=== PATIENT | male | born 1960 | race Caucasian/White ===

== ENCOUNTER → 2017-01-01 | Outpatient (CLI) | payer OTHER ==
[~2017-01-01] MED LIST: NAPR1TAB9 PO
== END | disposition home or self-care (01) ==
LOC: C.CPL 13:08
PROVIDERS: ATTEND Orthopaedic Surgery
DX: Z01.810 Encounter for preprocedural cardiovascular examination (principal)

== ENCOUNTER → 2018-03-06 | Outpatient (CLI) | payer OTHER ==
--- NOTE | 2018-03-06 13:10 | DIAGNOSTIC IMAGING REPORT ---
ULTRASOUND OF THE PERIANAL SOFT TISSUES CLINICAL HISTORY: Perianal cyst. COMPARISON STUDY: No priors. FINDINGS: Real-time, grayscale, and color flow sonography of the perianal soft tissues is performed at the indicated site of interest. There is a complex structure identified in the right perianal soft tissues of the site of interest. This measures 3.2 x 1.3 cm. Mild flow is seen in this region on color imaging. A small lymph node is suggested in the surrounding soft tissues and measures 6 mm short axis. IMPRESSION: There is a complex 3.2 cm structure/collection in the right-sided perianal soft tissues of the indicated site of interest. This is indeterminant and may resent a complex cyst or abscess. Clinical correlation will be essential and clinical follow-up to resolution is recommended. If this fails to resolve then a follow-up with a CT or MRI of the pelvis should be considered for further assessment. Electronically signed by: Duong Simon M.D. 03/06/2018 1:09 PM Dictated Date/Time: 03/06/2018 1:06 PM
== END | disposition home or self-care (01) ==
LOC: C.ULTRBC 12:08
PROVIDERS: ATTEND Surgery
DX: K62.89 Other specified diseases of anus and rectum (principal)

== ENCOUNTER → 2018-03-13 | Outpatient (CLI) | payer OTHER | END | disposition home or self-care (01) | LOC: C.LABSPEC 16:46 | PROVIDERS: ATTEND Surgery | DX: K61.0 Anal abscess (principal) ==

== ENCOUNTER 2021-11-23 16:07 | Inpatient (IN) ==
--- NOTE | 2021-11-23 16:20 | Emergency Department Note ---
History of Present Illness General Chief complaint: Cardiac Assessment Stated complaint: Cardiac Assessment History of Present Illness 60-year-old male presents to the ED with a chief complaint of chest discomfort. The patient states that his symptoms started a little after 2 PM. He states that he was sitting in his desk when his symptoms started. He describes a heaviness and tightness in his chest that radiated down both of his arms. He states like a bad indigestion. 8/10. He states his arms felt like they were tingling. He reports a little bit of diaphoresis. Denies shortness of breath, nausea or vomiting. The patient states that his symptoms resolved after EMS arrived and provided aspirin and IV fluids. The patient states that he has not had a stress test since about 2012. He does report some mild chest discomfort with ambulation over the past month. He has had some cold symptoms over a week ago. He has since recovered. 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 History of gout History of osteoarthritis lower leg and shoulder Left shoulder pain Perianal abscess Perianal cyst Surgical History History of incision and drainage skin abcess w/ packing march 13, 2018 perianal abcess in office [employer] S/P inguinal hernia repair 2012 S/P shoulder surgery reconstruction- 1998 S/P total knee arthroplasty 2011 Family History Father Alcoholism Cardiac disorder Diabetes Hypertension Myocardial infarction, Onset Age: 56 Seizure Mother Cardiac disorder Diabetes Hypertension Lung disease Myocardial infarction, Onset Age: 60 Denies family history of Colon cancer Ovarian cancer Prostate cancer Breast cancer Social History Smoking Status: Never smoker Hx Alcohol Use: No Hx Substance Use: No Preferred Language: Croatian Communication Ability: Effective Visual Impairment: No Limitations Hearing Ability: Normal Beliefs That Will Affect Care: None marital status: Current Living Situation: Spouse current occupational status: employed 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 Feels Safe at Home: Yes Childhood Exposure to Second-Hand Smoke: Yes Diet Comment: regular caffeine: Yes (coffee) during the past year weight has: remained stable Dental Care, Regularly: Yes Physical Activity Frequency: 5-6 Times per Week Seatbelt Use: always Sunscreen Use: Yes Review of Systems A total of 10 systems reviewed and were otherwise negative Physical Exam Vital Signs Vital Signs - 24 hr 11/23/21 16:20 Temperature 36.6 C Temperature Source Oral Pulse Rate 65 Respiratory Rate 16 Blood Pressure 163/96 H Blood Pressure Mean 118 Pulse Oximetry 97 Oxygen Delivery Method Room Air Sepsis Recent Fever Within 48 Hours No Sepsis New/Unexplained Change in Mental Status No Sepsis Action Taken by Nursing No Action Required CONSTITUTIONAL/VITAL SIGNS: Reviewed / noted above. GENERAL: Non-toxic in appearance. INTEGUMENTARY: Warm, dry, and [place]. HEAD: Normocephalic. EYES: without scleral icterus or trauma. ENT/OROPHARYNX: clear and moist. LYMPHADENOPATHY/NECK: Is supple without lymphadenopathy or meningismus. RESPIRATORY: Clear to auscultation bilaterally. No increased work of breathing. CARDIOVASCULAR: Regular rate and rhythm. GI/ABDOMEN: Soft and nontender. No organomegaly or pulsatile mass. EXTREMITIES: Warm and well perfused. BACK: No CVA tenderness. NEUROLOGICAL: Intact without focal deficits. PSYCHIATRIC: normal affect. MUSCULOSKELETAL: Normally developed with good muscle tone. TRIAGE NURSING DOCUMENTATION REVIEWED. Medical Decision Making Differential Diagnosis The differential that was considered includes acute myocardial infarction, acute coronary syndrome, myocarditis, pericarditis, pericardial effusions /tamponade, esophageal perforation, thoracic aortic dissection, pulmonary embolism, pneumonia, pneumothorax, pancreatitis, shingles, acute cholecystitis, perforated abdominal viscus. Medical Records Attestation: I reviewed the patient's medical records. Home Medications Current Medication List: was personally reviewed by me Laboratory Data Attestation: I reviewed the patient's lab results. Result diagrams: 11/23/21 16:15 11/23/21 16:15 Lab Results 02/02/22 02/02/22 02/02/22 Range/Units 16:15 16:15 16:15 WBC 8.12 (4.8-10.8) K/uL RBC 5.44 (4.7-6.1) M/uL Hgb 16.3 (14.0-18.0) g/dL Hct 47.6 (42-52) % MCV 87.5 (80-100) fL MCH 30.0 (25-34) pg MCHC 34.2 (32-36) g/dL RDW Std Deviation 39.8 (36.4-46.3) fL RDW Coeff of Judy 12.5 (11.5-14.5) % Plt Count 180 (130-400) K/uL MPV 9.7 (7.4-10.4) fL Immature Gran % (Auto) 0.4 % Neut % (Auto) 83.9 % Lymph % (Auto) 10.8 % Graham % (Auto) 3.8 % Eos % (Auto) 1.0 % Baso % (Auto) 0.1 % Neut # (Auto) 6.81 H (1.4-6.5) K/uL Lymph # (Auto) 0.88 L (1.2-3.4) K/uL Graham # (Auto) 0.31 (0.11-0.59) K/uL Eos # (Auto) 0.08 (0-0.5) K/uL Baso # (Auto) 0.01 (0-0.2) K/uL Immature Gran # (Auto) 0.03 H (0.00-0.02) K/uL PT 10.5 (9.0-12.0) Seconds INR 1.0 (0.9-1.1) APTT 25.1 (21.0-31.0) Seconds PTT Ratio 1.0 Sodium 137 (136-145) mmol/L Potassium 4.4 (3.5-5.1) mmol/L Chloride 104 (98-107) mmol/L Carbon Dioxide 26 (21-32) mmol/L Anion Gap 7 (3-11) BUN 14 (6-23) mg/dl Creatinine 1.13 (0.6-1.4) mg/dl Est Cr Clr Drug Dosing 83.7 ml/min Est GFR ( Amer) 80.3 ml/min Est GFR (Non-Af Amer) 69.3 ml/min BUN/Creatinine Ratio 12.4 (10-20) Glucose 108 H (70-99(Fasting)) mg/dl Calcium 9.4 (8.5-10.1) mg/dl Total Bilirubin 0.5 (0.2-1.0) mg/dl AST 22 (13-39) U/L ALT 24 (7-52) U/L Alkaline Phosphatase 46 (34-104) U/L Troponin I 0.41 H* (0-0.04) ng/ml Total Protein 6.9 (6.0-8.3) gm/dl Albumin 4.2 (3.4-5.0) gm/dl Globulin 2.7 (2.5-4.0) gm/dl Albumin/Globulin Ratio 1.6 (0.9-2) Lipase 25 (11-82) U/L Imaging Data Radiologist's Impression: Chest X-Ray 11/23/21 16:12 SINGLE VIEW CHEST CLINICAL HISTORY: Atypical chest pain FINDINGS: 2 AP, portable, upright chest radiographs are obtained. No prior studies are available for comparison at the time of dictation. The heart is mildly enlarged. The pulmonary vasculature is noncongested. There is fullness of the reece. There is mild bibasilar scarring/atelectasis. No airspace c onsolidation or large pleural effusion is identified. No pneumothorax is seen. The bony thorax is grossly intact. IMPRESSION: 1. Cardiomegaly with no acute cardiopulmonary abnormality. 2. Bilateral hilar fullness is nonspecific. This could represent enlarged pulmonary arteries or possibly hilar adenopathy. A nonemergent contrast-enhanced chest CT could be considered for further assessment. ACT 112: Negative or not required by law. Electronically signed by: Duong Simon M.D. 11/23/2021 4:51 PM ECG Data Attestation: I personally reviewed and interpreted this ECG as follows: Additional Comments: Twelve-lead EKG: Per my interpretation shows a sinus rhythm at a rate of 68. No ST elevation. PVC. Normal QTC. MDM Narrative 60-year-old male presents with chest pain at rest as detailed above. Associated diaphoresis and radiation down the arms. He is also had some recent exertional chest discomfort over the past month. His physical exam was unremarkable. Vital signs are stable. Twelve-lead EKG showed a sinus rhythm at a rate of 68 without acute ischemic changes. The patient was given 4 baby aspirin by EMS as well as some IV fluids. His symptoms resolved after that. He currently denies any specific complaints with regards to chest pain. Chest x-ray shows some cardiomegaly. Troponin is elevated at 0.41. Metabolic panel was unremarkable. CBC is unremarkable. The patient will be seen by the hospitalist for further inpatient evaluation and care. Impression & Plan Chest pain, precordial, Non-ST elevation (NSTEMI) myocardial infarction Discharge Plan Visit Data Chief Complaint: Cardiac Assessment Stated Complaint: Cardiac Assessment ED Provider: aNun Gilliam Discharge Problem: Chest pain, precordial, Non-ST elevation (NSTEMI) myocardial infarction Patient Disposition: Being Evaluated by Hospitalist Forms Stand Alone Forms: [facility] Prescriptions Prescriptions: No Action tamsulosin [Flomax] 0.4 mg capsule 0.4 mg PO QPM RF: 0 ramipril 5 mg capsule 5 mg PO QAM RF: 0 Referrals Referrals: Jesus Coelho MD [Primary Care Provider] -
[2021-11-23 16:26] LABS: Basophils # (auto) 0.01 K/uL (0-0.2); Basophils % (auto) 0.1 %; Eosinophils # (auto) 0.08 K/uL (0-0.5); Hematocrit (blood only) 47.6 % (42-52); Hemoglobin 16.3 g/dL (14.0-18.0); Immature Granulocytes # (auto) 0.03 K/uL (0.00-0.02); Immature Granulocytes % (auto) 0.4 %; Lymphocytes # (auto) 0.88 K/uL (1.2-3.4); Lymphocytes % (auto) 10.8 %; Mean Corpuscular Hgb Conc 34.2 g/dL (32-36); Mean Corpuscular Volume 87.5 fL (80-100); Mean Platelet Volume 9.7 fL (7.4-10.4); Monocytes # (auto) 0.31 K/uL (0.11-0.59); Monocytes % (auto) 3.8 %; Neutrophils # (auto) 6.81 K/uL (1.4-6.5); Neutrophils % (auto) 83.9 %; Platelet Count 180 K/uL (130-400); RDW Coefficient of Variation 12.5 % (11.5-14.5); RDW Standard Deviation 39.8 fL (36.4-46.3); Red Blood Count 5.44 M/uL (4.7-6.1); White Blood Count 8.12 K/uL (4.8-10.8)
[2021-11-23 16:38] LABS: Partial Thromboplastin Time 25.1 Seconds (21.0-31.0); Prothrombin Time 10.5 Seconds (9.0-12.0)
--- NOTE | 2021-11-23 16:52 | XRay Report ---
SINGLE VIEW CHEST CLINICAL HISTORY: Atypical chest pain FINDINGS: 2 AP, portable, upright chest radiographs are obtained. No prior studies are available for comparison at the time of dictation. The heart is mildly enlarged. The pulmonary vasculature is nonc ongested. There is fullness of the reece. There is mild bibasilar scarring/atelectasis. No airspace co nsolidation or large pleural effusion is identified. No pneumothorax is seen. The bony thorax is davide sly intact. IMPRESSION: 1. Cardiomegaly with no acute cardiopulmonary abnormality. 2. Bilateral hilar fullness is nonspecific. This could represent enlarged pulmonary arteries or possi susie hilar adenopathy. A nonemergent contrast-enhanced chest CT could be considered for further assess ment. ACT 112: Negative or not required by law. Electronically signed by: Duong Simon M.D. 11/23/2021 4:51 PM
[2021-11-23 16:58] LABS: Albumin Globulin Ratio 1.6 (0.9-2); Albumin Level 4.2 gm/dl (3.4-5.0); BUN Creatinine Ratio 12.4 (10-20); Bilirubin,Total 0.5 mg/dl (0.2-1.0); Calcium 9.4 mg/dl (8.5-10.1); Creatinine Clr Calc Pharmacy 83.7 ml/min; Est GFR (African American) 80.3 ml/min; Est GFR (Non-African American) 69.3 ml/min; Globulin 2.7 gm/dl (2.5-4.0); Potassium 4.4 mmol/L (3.5-5.1); Total Protein 6.9 gm/dl (6.0-8.3)
[2021-11-23 17:07] LABS: Troponin I 0.41 ng/ml (0-0.04)
--- NOTE | 2021-11-23 17:45 | History & Physical Report ---
Date of Service November 23, 2021 Assessment & Plan (1) Non-ST elevation (NSTEMI) myocardial infarction: Plan: 60 yo M with a PMHx HTN and BPH admitted for NSTEMI. NSTEMI, HTN: Presented with 2 hours of midsternal chest pain improved following baby asa x4. Initial troponin 0.41 without baseline to compare. EKG without notable ST or T wave changes. Hypertensive 160s/90s in ER; did not miss home medication today. Chest pain free on my interview; nitro SL prn ordered. No indication for emergent catheterization. Echo, A1c, lipid panel ordered for AM. Trend troponins q6h. Heparin gtt initiated. Will start daily asa 81mg, Plavix 75mg. Added metoprolol tartrate 25mg BID. Continue home ramipril 5mg daily. Cardiology consulted and appreciate recommendations. Code Status: FULL CODE FEN: Heart healthy diet, NPO at midnight DVT ppx: Heparin gtt Dispo: Med/Surg with Telemetry (2) HTN (hypertension): History of Present Illness Chief Complaint: Chest pain Primary Care Provider: Jesus Coelho MD 60 yo M with a PMHx HTN and BPH who presented to the ER after an episode of chest pain at rest at home. Pain resolved after receiving IV fluids and 4 baby aspirin by EMS. Admission troponin of 0.41; EKG without ST changes. Lab work otherwise benign. Chest x-ray noted cardiomegaly without acute cardiopulmonary abnormality. 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 Recommendation for nonemergent contrast-enhanced chest CT. Patient reports around 1 month of exertional dyspnea (while walking up a hill near his worship) but has never had pain or dyspnea at rest in the past. His last stress test was in 2012 which did not show any abnormalities at that time. 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 History of gout History of osteoarthritis lower leg and shoulder Left shoulder pain Perianal abscess Perianal cyst Surgical History History of incision and drainage skin abcess w/ packing march 13, 2018 perianal abcess in office [employer] S/P inguinal hernia repair 2012 S/P shoulder surgery reconstruction- 1998 S/P total knee arthroplasty 2011 Family History Father Alcoholism Cardiac disorder Diabetes Hypertension Myocardial infarction, Onset Age: 56 Seizure Mother Cardiac disorder Diabetes Hypertension Lung disease Myocardial infarction, Onset Age: 60 Denies family history of Colon cancer Ovarian cancer Prostate cancer Breast cancer Social History Smoking Status: Never smoker Hx Alcohol Use: No Hx Substance Use: No Preferred Language: Maltese Communication Ability: Effective Visual Impairment: No Limitations Hearing Ability: Normal Beliefs That Will Affect Care: None marital status: Current Living Situation: Spouse current occupational status: employed 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 Feels Safe at Home: Yes Childhood Exposure to Second-Hand Smoke: Yes Diet Comment: regular caffeine: Yes (coffee) during the past year weight has: remained stable Dental Care, Regularly: Yes Physical Activity Frequency: 5-6 Times per Week Seatbelt Use: always Sunscreen Use: Yes Review of Systems Review of Systems: All systems reviewed & are unremarkable except as noted in HPI & below Constitutional: no fever, no chills and no malaise Respiratory: no cough and no dyspnea Cardiovascular: + chest pain; no palpitations and no edema Gastrointestinal: no abdominal pain, no constipation and no diarrhea/loose stools Physical Exam Constitutional: WD/WN, vitals as above Eyes: PERRL, conjunctivae normal, anicteric sclerae ENMT: external ear and nose normal, oropharynx normal Neck: normal visual inspection Respiratory: normal respiratory effort, lungs clear to auscultation Cardiovascular: RRR, no murmur, no edema Gastrointestinal (Abdomen): normal bowel sounds, soft, nontender, no hepatosplenomegaly Musculoskeletal: no cyanosis or clubbing, extremities motor strength 5/5 Skin: no rashes, warm and dry Neurologic: AAOx3, normal speech. Bilateral UE, LE, and face without sensory or motor deficits. No tremor. Psychiatric: A+Ox3, euthymic affect Results & Data Results & Data ([facility]) Vital Signs (Past 12 Hours) Vital Signs Temp Pulse Resp BP Pulse Ox 11/23/21 16:20 36.6 C 65 16 163/96 H 97 Supervising Physician Co-Signing Physician Notes Patient seen and examined in room. Patient initially presented with chest pain, currently pain-free. Mild elevated troponin. Started on heparin drip. Exam reveals heart with no murmurs. Lungs are clear to auscultation. Rest of exam is as noted above. Cardiology consultation, continue to track troponins. Consider cardiac catheterization based on work-up. Resident Activity Tracking Resident Involvement: Resident Care Provided Care Provided: Adult Hospital Medicine
[2021-11-23] MEDS ORDERED: NITROGLYCERIN SL 0.4 MG/TAB TAB SL PRN (18:13)
[2021-11-23] MEDS ORDERED: MoRPHine SULFATE 2 MG/ML CARP IV PRN (18:13)
[2021-11-23] MEDS ORDERED: Heparin IV Adult Wt-Based Standard WITH Bolus Protocol STA (18:13)
[2021-11-23] MEDS ORDERED: HEPARIN SOD (PORCINE) 1000 UNIT/ML IV ONE (18:24)
[2021-11-23] MEDS: HEPARIN SODIUM/DEXTROSE 25,000 UNITS/500 ML BAG IV SCH (18:34)
[2021-11-23] MEDS ORDERED: POLYETHYLENE (MIRALAX) 17 GM PACK PO PRN (21:13)
[2021-11-23] MEDS ORDERED: ACETAMINOPHEN 325 MG TAB PO PRN (21:13)
[2021-11-23] MEDS: METOPROLOL TARTRATE 25 MG TAB PO SCH (22:21)
[2021-11-23] MEDS ORDERED: hydrALAZINE HCL 20 MG/ML VIAL IV PRN (22:23)
[2021-11-24 01:00] LABS: Partial Thromboplastin Ratio 3.8
[2021-11-24 01:07] LABS: Partial Thromboplastin Time 99.1 Seconds (21.0-31.0)
[2021-11-24 05:33] LABS: Troponin I 12.87 ng/ml (0-0.04)
[2021-11-24 07:02] LABS: Estimated Average Glucose 111 mg/dl; Hemoglobin A1C 5.5 % (4.5-5.6)
[2021-11-24 09:18] LABS: Partial Thromboplastin Ratio 2.8
[2021-11-24] MEDS: METOPROLOL TARTRATE 25 MG TAB PO SCH ×2 (09:31→20:36)
[2021-11-24] MEDS: ASPIRIN 81 MG ECTAB PO SCH (09:34)
[2021-11-24] MEDS: ENALAPRIL MALEATE 10 MG TAB PO SCH (09:35)
[2021-11-24] MEDS: ATORVASTATIN 40 MG TAB PO SCH (09:35)
[2021-11-24] MEDS: CLOPIDOGREL BISULFATE 75 MG TAB PO SCH (09:35)
[2021-11-24 09:52] LABS: Partial Thromboplastin Time 73.8 Seconds (21.0-31.0)
--- NOTE | 2021-11-24 11:02 | Cardiology Consultation ---
Date of Consultation November 24, 2021 Assessment & Plan (1) Non-ST elevation (NSTEMI) myocardial infarction: (2) HTN (hypertension): (3) Ischemic cardiomyopathy: ASSESSMENT/PLAN: 1. NSTEMI: No further angina. Continue aspirin, Plavix, heparin drip. Continue beta-girma. Continue high intensity statin therapy and AYLEEN inhibitor. Recommend cardiac catheterization. Risks and benefits of the procedure were discussed with him in detail. He was made aware that CT surgery is not available at this facility. He was agreeable to proceed when Boiler [facility] is available. Currently no urgent indication as he is chest pain-free. For any symptoms, he was asked to notify nursing staff immediately. 2. Ischemic cardiomyopathy: Reduced LV systolic function noted on preliminary review of echo0 On preliminary review LV systolic function does not appear to be severely reduced. Would recommend metoprolol succinate and AYLEEN inhibitor on discharge. If EF is less than 35%, would consider LifeVest if no improvement. Formal echo review pending. He appears euvolemic. 3. Hypertension: Blood pressure has been normotensive to mildly hypertensive. Blood pressure this morning while we were in the room was improved compared to most recent charted vitals. Beta-girma and AYLEEN inhibitor. 4. Disposition cardiology will continue to follow. Cardiac catheterization pending. Patient care communicated with Dr. Devi of the primary hospitalist service. Highly complex medical issues. Thank you for allowing me to participate in the care of your patient. Please call for any other questions or concerns. Sincerely, Dunae Carlos M.D. History of Present Illness Reason for Consultation: NSTEMI Requesting Physician: Helen Mendoza Attending Physician: Kevin Devi DO History of Present Illness Mr. Eubanks is a pleasant 60-year-old gentleman with history significant for hypertension who was admitted on 11/23/2021 for chest discomfort. He has no known cardiac history. At approximately 2:00 p.m. on 11/23/2021, while sitting at his desk, he developed 8/10 substernal chest discomfort described as a tightness and burning sensation that radiated to bilateral arms. There was associated diaphoresis but no shortness of breath. He has a history of acid reflux and took Tums with no relief. The chest discomfort was different than usual acid reflux. He called for EMS and was given aspirin 324 mg. Shortly thereafter symptoms resolved. There was reported ST elevation on ECG by EMS however it is not available for review at the time of this note. This apparently resolved after chest discomfort resolved. In the emergency department, initial troponin was 0.41 and peaked at 17.31 before trending downward. He has remained chest discomfort free since being in the emergency department. He was admitted by the hospitalist service. He denies shortness of breath at rest, syncope, near-syncope, palpitations, edema, or bleeding such as melena, hematochezia, or hematuria. He has chronic dyspnea with exertion while walking up hills, with no recent change. In the emergency department, he was placed on heparin, aspirin, Plavix, and low- dose beta-girma. He takes AYLEEN-inhibitor at home. He also was initiated on statin therapy. Review of systems: As above. Review of systems otherwise negative/unremarkable. Family history: Father had RI and CABG at the age of 55 and in his 80s. Mother had CAD diagnosed in her 60s. Social history: Denies tobacco, alcohol, or drug abuse. He lives at home with his in [place]. They have 4 children (daughter in [place], son in [facility], son in [place], son in [place]). 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 He was unaccompanied in his ER room. 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 History of gout History of osteoarthritis lower leg and shoulder Left shoulder pain Perianal abscess Perianal cyst Surgical History History of incision and drainage skin abcess w/ packing march 13, 2018 perianal abcess in office [facility] S/P inguinal hernia repair 2012 S/P shoulder surgery reconstruction- 1998 S/P total knee arthroplasty 2012 Family History Father Alcoholism Cardiac disorder Diabetes Hypertension Myocardial infarction, Onset Age: 56 Seizure Mother Cardiac disorder Diabetes Hypertension Lung disease Myocardial infarction, Onset Age: 60 Denies family history of Colon cancer Ovarian cancer Prostate cancer Breast cancer Social History Smoking Status: Never smoker Second Hand Exposure: No; Do You Dip or Chew Tobacco: No; Hx Alcohol Use: No Hx Substance Use: No Preferred Language: Cameroonian Communication Ability: Effective Visual Impairment: No Limitations Hearing Ability: Normal Supervisor Coin Machine Required: No Beliefs That Will Affect Care: None marital status: Current Living Situation: Spouse current occupational status: employed 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 Alert and oriented. HEENT: Anicteric sclera. Neck: No JVD. No bruits. Normal carotid upstrokes bilaterally. Cardiac: PMI was nondisplaced. No ventricular heave. Regular rate and rhythm. Normal S1-S2. No murmurs, rubs, or gallops. Pulmonary: Clear to auscultation bilaterally without wheezes, rales, or rhonchi. Abdomen: Soft, nontender, nondistended, with normoactive bowel sounds. No bruits noted. Extremities: 2+ radial pulses bilaterally. 2+ posterior tibialis pulses bilaterally. No edema or cyanosis. Psychiatric: Affect appears appropriate. Results & Data ([facility]) Vital Signs (Past 12 Hours) Pulse 58 bpm; BP 139/98 mmHg; RR 18; O2 Sat 97% on Room Air Laboratory Results Laboratory Results - last 24 hr 11/23/21 11/23/21 11/23/21 16:15 16:15 16:15 WBC 8.12 RBC 5.44 Hgb 16.3 Hct 47.6 MCV 87.5 MCH 30.0 MCHC 34.2 RDW Std Deviation 39.8 RDW Coeff of Judy 12.5 Plt Count 180 MPV 9.7 Immature Gran % (Auto) 0.4 Neut % (Auto) 83.9 Lymph % (Auto) 10.8 Linn % (Auto) 3.8 Eos % (Auto) 1.0 Baso % (Auto) 0.1 Neut # (Auto) 6.81 H Lymph # (Auto) 0.88 L Linn # (Auto) 0.31 Eos # (Auto) 0.08 Baso # (Auto) 0.01 Immature Gran # (Auto) 0.03 H PT 10.5 INR 1.0 APTT 25.1 PTT Ratio 1.0 Sodium 137 Potassium 4.4 Chloride 104 Carbon Dioxide 26 Anion Gap 7 BUN 14 Creatinine 1.13 Est Cr Clr Drug Dosing 83.7 Est GFR ( Amer) 80.3 Est GFR (Non-Af Amer) 69.3 BUN/Creatinine Ratio 12.4 Glucose 108 H Estimat Average Glucose Hemoglobin A1c Calcium 9.4 Total Bilirubin 0.5 AST 22 ALT 24 Alkaline Phosphatase 46 Troponin I 0.41 H* Total Protein 6.9 Albumin 4.2 Globulin 2.7 Albumin/Globulin Ratio 1.6 Triglycerides Cholesterol LDL Cholesterol, Calc VLDL Cholesterol, Calc HDL Cholesterol Cholesterol/HDL Ratio Lipase 25 SARS-CoV-2, RNA, NAAT 11/23/21 11/23/21 11/24/21 17:48 22:04 00:27 WBC RBC Hgb Hct MCV MCH MCHC RDW Std Deviation RDW Coeff of Judy Plt Count MPV Immature Gran % (Auto) Neut % (Auto) Lymph % (Auto) Linn % (Auto) Eos % (Auto) Baso % (Auto) Neut # (Auto) Lymph # (Auto) Linn # (Auto) Eos # (Auto) Baso # (Auto) Immature Gran # (Auto) PT INR APTT 99.1 H* PTT Ratio 3.8 Sodium Potassium Chloride Carbon Dioxide Anion Gap BUN Creatinine Est Cr Clr Drug Dosing Est GFR ( Amer) Est GFR (Non-Af Amer) BUN/Creatinine Ratio Glucose Estimat Average Glucose Hemoglobin A1c Calcium Total Bilirubin AST ALT Alkaline Phosphatase Troponin I 17.31 H* Total Protein Albumin Globulin Albumin/Globulin Ratio Triglycerides Cholesterol LDL Cholesterol, Calc VLDL Cholesterol, Calc HDL Cholesterol Cholesterol/HDL Ratio Lipase SARS-CoV-2, RNA, NAAT NEGATIVE 11/24/21 11/24/21 11/24/21 04:21 04:21 08:25 WBC RBC Hgb Hct MCV MCH MCHC RDW Std Deviation RDW Coeff of Judy Plt Count MPV Immature Gran % (Auto) Neut % (Auto) Lymph % (Auto) Linn % (Auto) Eos % (Auto) Baso % (Auto) Neut # (Auto) Lymph # (Auto) Linn # (Auto) Eos # (Auto) Baso # (Auto) Immature Gran # (Auto) PT INR APTT 73.8 H* PTT Ratio 2.8 Sodium Potassium Chloride Carbon Dioxide Anion Gap BUN Creatinine Est Cr Clr Drug Dosing Est GFR ( Amer) Est GFR (Non-Af Amer) BUN/Creatinine Ratio Glucose Estimat Average Glucose 111 Hemoglobin A1c 5.5 Calcium Total Bilirubin AST ALT Alkaline Phosphatase Troponin I 12.87 H* Total Protein Albumin Globulin Albumin/Globulin Ratio Triglycerides 81 Cholesterol 185 LDL Cholesterol, Calc 123 VLDL Cholesterol, Calc 16 HDL Cholesterol 46 Cholesterol/HDL Ratio 4.0 Lipase SARS-CoV-2, RNA, NAAT 11/24/21 10:03 WBC RBC Hgb Hct MCV MCH MCHC RDW Std Deviation RDW Coeff of Judy Plt Count MPV Immature Gran % (Auto) Neut % (Auto) Lymph % (Auto) Linn % (Auto) Eos % (Auto) Baso % (Auto) Neut # (Auto) Lymph # (Auto) Linn # (Auto) Eos # (Auto) Baso # (Auto) Immature Gran # (Auto) PT INR APTT PTT Ratio Sodium Potassium Chloride Carbon Dioxide Anion Gap BUN Creatinine Est Cr Clr Drug Dosing Est GFR ( Amer) Est GFR (Non-Af Amer) BUN/Creatinine Ratio Glucose Estimat Average Glucose Hemoglobin A1c Calcium Total Bilirubin AST ALT Alkaline Phosphatase Troponin I 9.09 H* Total Protein Albumin Globulin Albumin/Globulin Ratio Triglycerides Cholesterol LDL Cholesterol, Calc VLDL Cholesterol, Calc HDL Cholesterol Cholesterol/HDL Ratio Lipase SARS-CoV-2, RNA, NAAT Diagnostic Findings ECGs personally reviewed: ECG 11/23/2021 at 4:16 p.m.: Sinus rhythm with PVCs at 68 beats per minute. ECG 11/24/2021 at 8:33 a.m.: Sinus bradycardia 55 beats per minute. Lateral T-wave abnormality. Anterior T-wave abnormality. Poor R-wave progression, possible anterior infarct. Chest x-ray 11/23/2021: No acute cardiopulmonary abnormality per Radiology. Medications Administered Current Inpatient Medications Acetaminophen (Acetaminophen 325 Mg Tab) 650 mg PO Q4H PRN PRN Reason: Pain or Fever Stop: 12/23/21 21:12 Aspirin (Aspirin 81 Mg Ectab) 81 mg PO [facility] Stop: 12/24/21 08:59 Last Admin: 11/24/21 09:34 Dose: 81 mg Documented by: Atorvastatin Calcium (Atorvastatin 40 Mg Tab) 80 mg PO [facility] Stop: 12/24/21 08:59 Last Admin: 11/24/21 09:35 Dose: 80 mg Documented by: Clopidogrel Bisulfate (Clopidogrel Bisulfate 75 Mg Tab) 75 mg PO [facility] Stop: 12/24/21 08:59 Last Admin: 11/24/21 09:35 Dose: 75 mg Documented by: Enalapril Maleate (Enalapril Maleate 10 Mg Tab) 20 mg PO [facility] Stop: 12/24/21 08:59 Last Admin: 11/24/21 09:35 Dose: 20 mg Documented by: Hydralazine HCl (Hydralazine Hcl 20 Mg/Ml Vial) 10 mg IV Q6H PRN PRN Reason: systolic >180, diastolic >100 Stop: 12/23/21 22:29 Heparin Sodium/Dextrose (Heparin Sodium/Dextrose) 25,000 units in 500 mls @ 28 mls/hr IV .[id number] [facility]; Protocol Stop: 12/23/21 18:29 Last Titration: 11/24/21 09:56 Dose: 1,300 units/hr, 26 mls/hr Documented by: Metoprolol Tartrate (Metoprolol Tartrate 25 Mg Tab) 25 mg PO BID [facility] Stop: 12/23/21 21:12 Last Admin: 11/24/21 09:31 Dose: Not Given Documented by: Morphine Sulfate (Morphine Sulfate 2 Mg/Ml Carp) 2 mg IV Q30M PRN PRN Reason: Chest Pain Stop: 12/07/21 18:12 Nitroglycerin (Nitroglycerin Sl 0.4 Mg/Tab Tab) 0.4 mg SL UD PRN PRN Reason: Chest Pain Stop: 12/23/21 18:12 Polyethylene Glycol (Polyethylene (Miralax) 17 Gm Pack) 17 gm PO DAILY PRN PRN Reason: Constipation Stop: 12/23/21 21:12 Tamsulosin HCl (Tamsulosin Hcl 0.4 Mg Cap) 0.4 mg PO QPM [facility] Stop: 12/24/21 20:59 PG Care Time/CCT Total # of Minutes Spent Total Time Spent with Patient: Total time spent is greater than 50% in coordination of care (as documented) at patient's floor/unit and/or counseling patient: Coding Level of Care Code 50073 Inpt Consult Level 5 Diagnoses Non-ST elevation (NSTEMI) myocardial infarction I21.4 HTN (hypertension) I10 Ischemic cardiomyopathy I25.5
--- NOTE | 2021-11-24 13:34 | Cardiac Catheterization ---
[facility] Data: Process Mold Technician Cardiac Status Clinical evaluation leading to the procedure CAD Presenation: Unstable angina Anginal Classification: CCS III Heart Failure: No Cardiogenic Shock within 24 Hours: No Cardiac Arrest within 24 Hours: No Imaging Studies Past 6 Months: Yes Stress Studies Past 6 Months: No Coronary Anatomy Dominant: Right Diagnostic Physicians Name: Maximo Carlos MD Status: Elective Closure Device Percutaneous Entry Location: Radial Closure Device: Radial Band Recommendations: PCI without planned CABG Cardiac Cath Procedure Full Procedure Date November 24, 2021 Pre-Procedure Diagnosis Pre-Procedure Diagnosis: Angina AUC Score AUC Score: 7 Post-Procedure Diagnosis Post-Procedure Diagnosis: Severe CAD and Elevated Intracardiac Pressures Procedure(s) Performed Procedure(s) Performed: Coronary Angiography and Left Heart Cath Vasc Tech Maximo Carlos MD Chemist Inorganic(s) [place]ler Estimated Blood Loss Estimated Blood Loss: < 25 ml Medication(s) Medication(s): Fentanyl, Heparin, Lidocaine 1%, Nicardipine and Versed Summary of Findings Procedures: 1. Coronary angiography 2. Left heart catheterization 3. Moderate sedation Indication: 60-year-old gentleman with a history significant for hypertension and dyslipidemia who presents with a few week history of crescendo angina. Referred for cardiac catheterization by Dr. Madsen. Coronary angiography: 1. Left main: No significant CAD. 2. Left anterior descending: LAD extends to the apex. Mid LAD 30% at bifurcation of D1. No other significant CAD noted. 3. Circumflex: Proximal circumflex 20 to 30%. Mid circumflex 40%. Large OM2 with long stenosis 70-80%. GURU-3 flow. 4. Right coronary artery: RCA is large and dominant. Early mid RCA CAD of 30 to 50%. Mid RCA 70-80%. PDA and PL without significant CAD. GURU-3 flow Left heart catheterization: 1. Left ventriculography was not performed. 2. Mildly elevated LVEDP; 15 mmHg. 3. No aortic stenosis. Peak to peak gradient across the aortic valve is 0. Moderate sedation: 1. Sedation start time: 12:58 PM 2. Sedation end time: 1:20 PM Impression: 1. Severe CAD involving large OM2 and RCA. 2. Otherwise, mild to moderate nonobstructive CAD. 3. Mildly elevated left-sided filling pressure. 4. No aortic stenosis. Plan: 1. Dr. Green of interventional cardiology was asked to review imaging and consider PCI. 2. Risk factor modification. Hemodynamics Rest Ao:: 136/65 Final Ao: 145/69 LV: 130/7/15 Recommendations Recommendations: PCI without planned CABG Specimens Specimens: None Radiation Exposure (mGy) 1052 mGy. Fluoro time 2.4 min. Contrast (mls) 45 ml Procedural Complication(s) None Disposition remains in mobile lab technician for PCI attempt I attest to the content of the Intraoperative Record and any orders documented therein. Any exceptions are noted below. [employer] Card Cath Procedure Codes Cardiac Catheterization Procedure 1: Cardiovascular Cath Procedures: 00009 Coronaries and LHC (+/-LV) Moderate Sedation Procedure 1: Sedation/Anesthesia: 63062 Mod Sedation by the same physician;Init15 Min Child Age 5 & Up Procedure 2: Sedation/Anesthesia: 59114 Mod Sedation by the same physician; Ea [id number] Minutes PG Care Time/CCT Total # of Minutes Spent Total Time Spent with Patient: Total time spent is greater than 50% in coordination of care (as documented) at patient's floor/unit and/or counseling patient:
--- NOTE | 2021-11-24 14:11 | XCELERA ---
[id number]
[2021-11-24] MEDS ORDERED: niCARdipine HCL INJ 2.5 MG/ML 10 ML AMP ONE (15:05)
[2021-11-24] MEDS ORDERED: HEPARIN (PORCINE) 1000 UNIT/ML 10 ML (CATH LAB USE ONLY) ONE (15:05)
[2021-11-24] MEDS ORDERED: NITROGLYCERIN/D5W 100MCG/ML 20ML SYR ONE (15:06)
[2021-11-24] MEDS ORDERED: fentaNYL citrate 100 MCG/2 ML VIAL ONE (15:06)
[2021-11-24] MEDS ORDERED: MIDAZOLAM HCL 1 MG/ML 2ML VIAL ONE ×2 (15:06→15:37)
--- NOTE | 2021-11-24 15:17 | Pre Anesthesia Assessment ---
Date of Service November 24, 2021 Pre Sedation Assessment Vital Signs Temp Pulse Pulse Resp BP BP Pulse Ox 11/24/21 13:00 36.9 C 62 16 128/76 97 11/23/21 22:27 58 L 18 139/98 97 11/23/21 22:00 63 16 149/102 H 97 11/23/21 21:14 56 L 18 141/94 H 96 11/23/21 21:13 59 L 18 96 11/23/21 19:00 61 18 140/97 96 11/23/21 18:00 64 18 137/91 97 11/23/21 17:57 146/101 H 11/23/21 17:30 67 14 150/96 H 97 11/23/21 17:00 64 19 141/96 H 96 11/23/21 16:30 76 20 96 11/23/21 16:20 36.6 C 65 16 163/96 H 97 11/23/21 16:16 69 18 97 Pulse Ox 11/24/21 13:00 11/23/21 22:27 11/23/21 22:00 11/23/21 21:14 11/23/21 21:13 96 11/23/21 19:00 11/23/21 18:00 11/23/21 17:57 11/23/21 17:30 11/23/21 17:00 11/23/21 16:30 11/23/21 16:20 11/23/21 16:16 Cardiovascular RRR, no murmur, no edema Respiratory normal respiratory effort, lungs clear to auscultation Pre-Sedation Airway Assessment Smoking Status: Never smoker Short, Thick Neck: No Thyromental Distance: > or= 3.5 Finger Breadths Oral Cavity: + WNL Mallampati Class: II ASA: ASA3 NPO Status Date of Last Intake of Fluids: 11/23/21 Time of Last Intake of Fluids: 20:00 Date of Last Intake of Solid Food: 11/23/21 Time of Last Intake of Solid Foods: 20:00 Procedure Planning Contraindications for Sedation: none Current Medications Reviewed: Yes Notes The planned sedation has been discussed with the patient. Informed Consent was obtained. I have identified the patient, determined the appropriateness of sedation and have assessed the patient immediately prior to the procedure. All medicine(s) and interventions are by my order.
--- NOTE | 2021-11-24 15:51 | Hospitalist Progress Note ---
Date of Service November 24, 2021 Assessment & Plan (1) Non-ST elevation (NSTEMI) myocardial infarction: Plan: 60 yo M with a PMHx HTN and BPH admitted for NSTEMI. NSTEMI, HTN: - Presented with 2 hours of midsternal chest pain improved following baby asa x4. - Initial troponin 0.41 and with trending went to 17.31, 12.87, and 9.09 [address] without notable ST or T wave changes. - Hypertensive 160s/90s in ER but much improved - Lipid panel unremarkable; A1c 5.5 - S/P cardiac catheterization and PCI on 11/24 - Will maintain heparin gtt likely x 48 hours - Continue ASA and Plavix; Continue Metoprolol 25 mg BID (likely to convert to succinate on D/C); Continue ACEI interchange for home med - Cardiology following - appreciate input/recommendations and outpatient F/U (2) HTN (hypertension): Plan: Patient is independent at baseline and anticipate return home without needs; possible D/C tomorrow Admission and Anticipated Discharge Date Admission Date: November 23, 2021 Subjective No acute events overnight. Continues to be chest pain free. Was awaiting catheterization during my visit. Verbalizes no new complaints. Review of Systems Review of Systems: All systems reviewed & are unremarkable except as noted in Subjective Physical Exam Physical Exam: PHYSICAL EXAM General Appearance: WDWN in NAD who is A&O x 3 HEENT: Head is normocephalic/atraumatic;Hearing grossly intact; Mucous membranes moist Neck: Supple; Trachea midline; Neg JVD Heart: RRR with no M/G/R Lungs: CTA in all lung esposito bilaterally; Respirations unlabored; Neg accessory muscle use Abdomen: Soft, non-tender, non-distended; Positive BS x 4 quadrants Extremities: Neg cyanosis or edema Neurological: Speech clear; Gross motor/sensory function intact; Neg focal neurologic deficits Psychiatric: Appropriate mood/affect Skin: Normal Color; Warm/Dry Results & Data Results & Data ([facility]) Vital Signs (Past 12 Hours) Vital Signs Temp Pulse Resp BP Pulse Ox 11/24/21 13:00 36.9 C 62 16 128/76 97 PG Care Time/CCT Total # of Minutes Spent Total Time Spent with Patient: Total time spent is greater than 50% in coordination of care (as documented) at patient's floor/unit and/or counseling patient: Coding Level of Care Code 84087 Subseq Hosp Care Lvl 3 Diagnoses Non-ST elevation (NSTEMI) myocardial infarction I21.4 HTN (hypertension) I10
--- NOTE | 2021-11-24 16:15 | Cardiac Catheterization ---
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 Status Clinical evaluation leading to the procedure CAD Presenation: Non STEMI Anginal Classification: CCS IV Heart Failure: No Cardiogenic Shock within 24 Hours: No Cardiac Arrest within 24 Hours: No Imaging Studies Past 6 Months: Yes Stress Studies Past 6 Months: No Coronary Anatomy Dominant: Left Diagnostic Physicians Name: Maximo Carlos MD Closure Device Percutaneous Entry Location: Radial Closure Device: Radial Band Recommendations: PCI without planned CABG Cardiac Cath Procedure Full Procedure Date November 24, 2021 Pre-Procedure Diagnosis Pre-Procedure Diagnosis: Non STEMI AUC Score AUC Score: 9 Post-Procedure Diagnosis Post-Procedure Diagnosis: Severe CAD Procedure(s) Performed Procedure(s) Performed: Coronary Angiography Bundle Tier Maximo Carlos MD Restaurant Recruiter(s) Superintendent Board Mill Estimated Blood Loss Estimated Blood Loss: < 25 ml Medication(s) Medication(s): Fentanyl, Heparin, Lidocaine 1%, Nicardipine, Nitroglycerin and Versed Summary of Findings Procedures: 1. Coronary angiography 2. Moderate sedation Indication: 60-year-old gentleman with history significant for hypertension who presented with NSTEMI with LAD wall motion abnormality on echo and moderately reduced systolic function. Coronary angiography: 1. Left main: Large caliber vessel. Distal left main 20 to 30%. 2. Left anterior descending: Large caliber vessel that wraps around the apex. Late proximal LAD 40% with long diffusely diseased segment throughout the mid LAD. Mid LAD 80 to 90% followed by 90%. GURU-3 flow. Large D1 with 50% smooth narrowing ostial/prox. Large D2. 3. Circumflex: Large and dominant. Ostial circumflex 30 to 40%. Distal circumflex 10 to 20%. Small OM1. PL [address] branches without significant CAD. Distal PDA 95+% (small caliber) with GURU-3 flow. 4. Right coronary artery: Small and nondominant. No significant CAD. Moderate sedation: 1. Sedation start: 3:20 PM 2. Sedation end time: 3:56 PM Procedural notes: 1. Procedure was performed via the right radial artery without known complication. 2. Arterial spasm occurred while using a 6 Filipino diagnostic catheter. 5 Filipino JR4 diagnostic catheter was unable to be advanced. 4 Filipino diagnostic JR4 catheter was unable to be advanced initially. Nitroglycerin 0.4 mg sublingual given x1. Additional intra-arterial nicardipine was given. Catheter was then able to be advanced to perform angiography of the RCA. 3. Following nitroglycerin, he became hypotensive with systolic blood pressure in the 60s to 70s. He was asymptomatic and able to carry on a conversation. Blood pressure improved with normal saline infusion. Impression: 1. Severe CAD involving mid LAD (culprit vessel). 2. Severe CAD involving left PDA (small caliber vessel). 3. Otherwise, nonobstructive CAD. 4. Dominant circumflex. Plan: 1. Images reviewed with Dr. Green of interventional cardiology who plans to attempt PCI of LAD. 2. Risk factor modification. 3. Cardiac rehab. Hemodynamics Rest Ao:: 129/77 Final Ao: 71/51 LV: n/a Recommendations Recommendations: PCI without planned CABG Specimens Specimens: None Radiation Exposure (mGy) 822 mGy. Fluoro time 6.4 min. Contrast (mls) 35 ml Procedural Complication(s) None Disposition remains in medical laboratory specialist for PCI attempt I attest to the content of the Intraoperative Record and any orders documented therein. Any exceptions are noted below. [facility] Card Cath Procedure Codes Cardiac Catheterization Procedure 1: Cardiovascular Cath Procedures: 19024 Coronaries Moderate Sedation Procedure 1: Sedation/Anesthesia: 74366 Mod Sedation by the same physician;Init15 Min Child Age 5 & Up Procedure 2: Sedation/Anesthesia: 52197 Mod Sedation by the same physician; Ea [id number] Minutes Procedure 3: Sedation/Anesthesia: 19819 Mod Sedation by the same physician; Ea [id number] Minutes PG Care Time/CCT Total # of Minutes Spent Total Time Spent with Patient: Total time spent is greater than 50% in coordination of care (as documented) at patient's floor/unit and/or counseling patient:
--- NOTE | 2021-11-24 17:26 | Post Anesthesia Assessment ---
Date of Service November 24, 2021 Post Sedation Assessment Vital Signs Temp Pulse Pulse Resp BP BP Pulse Ox 11/24/21 17:15 68 20 118/75 97 11/24/21 17:00 66 20 138/83 96 11/24/21 13:00 98.4 F 62 16 128/76 97 11/23/21 22:27 58 L 18 139/98 97 11/23/21 22:00 63 16 149/102 H 97 11/23/21 21:14 56 L 18 141/94 H 96 11/23/21 21:13 59 L 18 96 11/23/21 19:00 61 18 140/97 96 11/23/21 18:00 64 18 137/91 97 11/23/21 17:57 146/101 H 11/23/21 17:30 67 14 150/96 H 97 Pulse Ox 11/24/21 17:15 11/24/21 17:00 11/24/21 13:00 11/23/21 22:27 11/23/21 22:00 11/23/21 21:14 11/23/21 21:13 96 11/23/21 19:00 11/23/21 18:00 11/23/21 17:57 11/23/21 17:30 Recovery Score Activity: Moves 4 extremities Respiration: Deep Breath/Cough Circulation: +/-20% PreAnes Value Consciousness: Fully Awake Oxygen Saturation: > 92% On Room Air Post Anesthesia Score: 10 Discharge Sedation Level of Care: Fast Track Phase II Post Sedation Plan On clinical assessment, the patient appears to have tolerated the sedation without complications. Patient is recovering as anticipated. Patient will continue to be monitored by nursing and may be discharged when sedation discharge criteria are met per below protocol. Upon Completions of procedure up to 15 minutes continue every 5 minute vital signs and the P.A.R. score; then discharge to a Phase I or Fast Track to Phase II per the following guidelines: * Discharge Patient to appropriate Phase II area if PAR is 8 or greater or return to pre- procedure baseline. The post - procedure orders will be as directed. * If PAR score is less than 8 or not return to pre-procedure baseline then patient will follow Phase I monitoring till PAR is reached for Phase II. The Phase I may be done in procedure room or may call to secure a Phase I area. * If naloxone or flumazenil are used for reversal, hold in Phase I for continued monitoring from when last reversal dose was given for a minimum of 60 minutes or longer pending the nurse and/or physician discretion of patient condition before discharge to Phase II. Please call the Sedation Physician to re-evaluate and complete post-note for discharge to Phase II area. Do NOT discharge from procedure sedation or Phase 1 until post- sedation evaluation note is complete by procedure /sedation MD Sedation Discharge Instructions to be given to the patient at discharge to home.
--- NOTE | 2021-11-24 17:28 | CT Scan Report ---
HEAD CT NONCONTRAST CT DOSE: 537.48 mGy.cm HISTORY: confusion following procedure TECHNIQUE: Multiaxial CT images of the head were performed without the use of intravenous contrast. A utomated exposure control was utilized for this study. A dose lowering technique was utilized adheri ng to the principles of ALARA. Comparison: None. Findings: Trace fluid within the left sphenoid sinus. The mastoid air cells are clear. There is contr ast within the brain from the recent cardiac catheterization. This results in suboptimal evaluation f or intracranial hemorrhage. The calvarium and skull base are intact. The ventricles and sulci are wit hin normal limits. There is no definite mass, hematoma, midline shift, or acute infarct. Impression: No acute intracranial abnormality. ACT 112: Negative or not required by law. Electronically signed by: Grover Lock M.D. 11/24/2021 5:27 PM
[2021-11-24] MEDS ORDERED: PHARMACIST DISCHARGE MED REC CONSULT PRN (17:39)
--- NOTE | 2021-11-24 17:42 | Cardiac Catheterization ---
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 Cardiac Status Clinical evaluation leading to the procedure CAD Presenation: Non STEMI Anginal Classification: CCS IV Heart Failure: No Cardiogenic Shock within 24 Hours: No Cardiac Arrest within 24 Hours: No Imaging Studies Past 6 Months: Yes Stress Studies Past 6 Months: No Diagnostic Physicians Name: Rg Green MD Status: Elective Closure Device Percutaneous Entry Location: Radial Closure Device: Radial Band Recommendations: PCI without planned CABG PCI Indication: PCI for high risk Non-KIA Lesion Segment Name: Mid LAD Culprit Artery: Yes Stenosis Prior to Rx (%): 95 Chronic Total Occlusion: No IVUS: Yes FFR: No Pre-Procedure GURU Flow: 2 Previously Treated Lesion: No Lesion Complexity: High/C Lesion Length (mm): 45 Thrombus Present: Yes Bifurcation Lesion: Yes Guidewire Across Lesion: Stenosis Post-Procedure (%): 0 Post-Procedure GURU Flow: 3 Devices(s) Deployed: Yes Yes Intraprocedure Events Significant Disection: No Perforation: No Cardiac Cath Procedure Full Procedure Date November 24, 2021 Pre-Procedure Diagnosis Pre-Procedure Diagnosis: Non STEMI AUC Score AUC Score: 9 Post-Procedure Diagnosis Post-Procedure Diagnosis: Severe CAD and Successful PCI Procedure(s) Performed Procedure(s) Performed: Coronary Angiography, Drug Eluting Stent and IVUS Irrigation Foreman Rg Green MD Professor Of Literacy(s) [employer] Safety Program Coordinator Estimated Blood Loss Estimated Blood Loss: < 25 ml Medication(s) Medication(s): Clopidogrel, Fentanyl, Heparin, Nicardipine, Nitroglycerin and Versed Summary of Findings Indication: High risk NSTEMI, Cardiomyopathy Access: 6Fr right radial artery Catheters: EBU 3.5 guide Findings: For full details of patient's coronary angiography please see cath report dictated by Dr. Carlos. Briefly, patient found to have severe diffuse proximal to mid LAD disease. Decision to proceed with PCI. -- PCI -- Antithrombotic therapy: Heparin, Clopidogrel Procedure: Left main cannulated with EBU 3.5 guide Helpdesk Manager 50 wire passed across lesion into distal vessel Prowater wire placed into 1st diagonal Proximal to mid LAD lesion predilated with 2.5 compliant balloon. Post initial balloon inflation noted to have a partially flow-limiting dissection. [employer] IVUS catheter placed into latemid LAD. Pullback revealed severe diffuse disease, mildly calcified extending back into proximal segment across takeoff of first diagonal. Mid LAD stented with 3.0 x 30 mm [place]ard drug-eluting stent. Stent postdilated with stent balloon Prowater wire removed from second diagonal and placed into first diagonal Proximal to mid LAD stented with second DYLON (3.5 x 26 mm [place]) and overlapped with proximal aspect of initial stent Repeat [place] IVUS revealed no apparent edge complications with well apposed but underexpanded stent First diagonal rewired with captain airline pilot 50 wire Stent post-dilated with 4.0 noncompliant balloon Ostial/proximal D1 dilated through stent struts with 2.0 balloon IC vasodilators administered for spasm Post procedure GURU 3 flow throughout LAD and diagonals. LAD stents well expanded with minimal residual stenosis and no edge complications. GURU-3 flow in both diagonals. D1 with moderate residual ostial stenosis. Arterial Closure: TR band Towards the end of procedure patient struggled to answer questions, with word finding difficulties. Slow improvement in holding area. No focal neurologic deficits. Taken for noncontrast CT scan which was negative for intracranial bleed or acute infarct. Summary: 1. Successful PCI of proximal to mid LAD with 2 overlapping drug-eluting stents (3.5 x 26, 3.0 x 30 mm [place]awaf; postdilated with 4.0 NC). Recommendations: To PCU for continued monitoring and neuro checks. Continue dual-antiplatelet therapy for at least 1 year Continue statin, and ASCVD risk factor modification Consult cardiac Rehab Hemodynamics Rest Ao:: 104/62/87 Final Ao: 121/65/89 LV: -- Recommendations Recommendations: PCI without planned CABG Specimens Specimens: None Radiation Exposure (mGy) 2028 Contrast (mls) 140 Fluids (cc crystalloids) Fluids (cc crystalloids): 900 Drains Drains: none Anesthesia moderate 7540-6640 Procedural Complication(s) None Disposition PCU I attest to the content of the Intraoperative Record and any orders documented therein. Any exceptions are noted below. [facility] Card Cath Procedure Codes Therapeutic Services & Ancillary Proc Procedure 1: Cardiovascular Tx and Anc Procedures: 12060 IV Ultrasound (Coronary or Graft) Moderate Sedation Procedure 1: Sedation/Anesthesia: 95083 Mod Sedation by the same physician; Ea [id number] Minutes Stenting Procedure 1: Cardiovascular Stent Procedures: 21858 Perc transcatheter placement of intracoronary stent(s), with ang PG Care Time/CCT Total # of Minutes Spent Total Time Spent with Patient: Total time spent is greater than 50% in coordination of care (as documented) at patient's floor/unit and/or counseling patient:
[2021-11-24] MEDS ORDERED: ONDANSETRON INJ 2 MG/ML 2 ML VIAL ONE (17:49)
[2021-11-24] MEDS ORDERED: ONDANSETRON INJ 2 MG/ML 2 ML VIAL IV PRN ×2 (17:57→18:00)
[2021-11-24] MEDS ORDERED: SODIUM CHLORIDE 0.9% 1000ML 1,000 ML IV SCH (18:00)
[2021-11-24] MEDS: HEPARIN SODIUM/DEXTROSE 25,000 UNITS/500 ML BAG IV SCH (18:30)
[2021-11-24 18:34] LABS: Partial Thromboplastin Ratio 3.6
[2021-11-24 18:45] LABS: Partial Thromboplastin Time 95.2 Seconds (21.0-31.0)
[2021-11-24] MEDS ORDERED: TAMSULOSIN HCL 0.4 MG CAP PO SCH (21:00)
--- NOTE | 2021-11-24 21:50 | Electrocardiogram Report ---
Test Reason : Blood Pressure : / mmHG Vent. Rate : 068 BPM Atrial Rate : 068 BPM P-R Int : 184 ms QRS Dur : 092 ms QT Int : 378 ms P-R-T Axes : 011 000 023 degrees QTc Int : 401 ms Sinus rhythm with occasional Premature ventricular complexes Otherwise normal ECG When compared with ECG of 01-JAN-2017 13:13, Premature ventricular complexes are now Present Confirmed by Maximo Carlos ([id number]) on 11/24/2021 9:49:53 PM Referred By: REFERRED SELF Confirmed By:Maximo Carlos
--- NOTE | 2021-11-25 06:52 | Electrocardiogram Report ---
Test Reason : Blood Pressure : / mmHG Vent. Rate : 053 BPM Atrial Rate : 053 BPM P-R Int : 196 ms QRS Dur : 086 ms QT Int : 470 ms P-R-T Axes : 017 033 103 degrees QTc Int : 441 ms Sinus bradycardia Low voltage QRS T wave abnormality, consider anterior ischemia ST elevation, consider inferior injury Abnormal ECG When compared with ECG of 01-JAN-2017 13:13, ST elevation now present in Inferior leads T wave inversion now evident in Anterior leads Confirmed by Maximo Carlos ([id number]) on 11/25/2021 6:52:06 AM Referred By: REFERRED SELF Confirmed By:Maximo Carlos
[2021-11-25] MEDS: ASPIRIN 81 MG ECTAB PO SCH (08:35)
[2021-11-25] MEDS: ATORVASTATIN 40 MG TAB PO SCH (08:35)
[2021-11-25] MEDS: ENALAPRIL MALEATE 10 MG TAB PO SCH (08:35)
[2021-11-25] MEDS: CLOPIDOGREL BISULFATE 75 MG TAB PO SCH (08:36)
[2021-11-25] MEDS: METOPROLOL TARTRATE 25 MG TAB PO SCH (08:37)
--- NOTE | 2021-11-25 08:40 | Electrocardiogram Report ---
Test Reason : Blood Pressure : / mmHG Vent. Rate : 055 BPM Atrial Rate : 055 BPM P-R Int : 196 ms QRS Dur : 096 ms QT Int : 432 ms P-R-T Axes : 015 004 085 degrees QTc Int : 413 ms Sinus bradycardia Anterior infarct , age undetermined T wave abnormality, consider lateral ischemia T wave abnormality, consider anterior ischemia Abnormal ECG When compared with ECG of 23-NOV-2021 16:16, Premature ventricular complexes are no longer Present Anterior infarct is now Present T wave inversion now evident in Anterolateral leads Confirmed by Maximo Carlos ([id number]) on 11/24/2021 10:35:38 PM Also confirmed by Maximo Carlos ([id number]), makeup editor Semaj Ledezma ([id number]) on 11/25/2021 8:39:32 AM Referred By: REFERRED SELF Confirmed By:Maximo Carlos
[2021-11-25 08:51] LABS: Hematocrit (blood only) 43.9 % (42-52); Hemoglobin 14.8 g/dL (14.0-18.0); Mean Corpuscular Hgb Conc 33.7 g/dL (32-36); Mean Corpuscular Volume 88.9 fL (80-100); Mean Platelet Volume 9.7 fL (7.4-10.4); Platelet Count 182 K/uL (130-400); RDW Coefficient of Variation 12.8 % (11.5-14.5); RDW Standard Deviation 41.8 fL (36.4-46.3); Red Blood Count 4.94 M/uL (4.7-6.1); White Blood Count 6.95 K/uL (4.8-10.8)
[2021-11-25 09:17] LABS: BUN Creatinine Ratio 12.7 (10-20); Calcium 8.9 mg/dl (8.5-10.1); Creatinine Clr Calc Pharmacy 85.7 ml/min; Est GFR (African American) 82.9 ml/min; Est GFR (Non-African American) 71.6 ml/min; Magnesium 1.7 mg/dl (1.7-2.4); Potassium 4.7 mmol/L (3.5-5.1)
--- NOTE | 2021-11-25 10:49 | Cardiology Progress Note ---
Date of Service November 25, 2021 Assessment & Plan (1) Non-ST elevation (NSTEMI) myocardial infarction: Plan: Post PCI with 2 DYLON to proximal to mid LAD 2. Ischemic cardiomyopathy EF 35 to 40% 3. Transient confusion 4. Hypertension Chest pain-free this morning. Hemodynamically and electrically stable. No access site complications. No heart failure on exam No focal neurologic deficits. Cognition back to baseline. Continue DAPT with aspirin, clopidogrel Continue current AYLEEN, transition metoprolol to Toprol-XL. Continue current statin We discussed potential discharge with a LifeVest. Patient declined. From a cardiac standpoint okay with discharge later today. Follow-up with Dr. Carlos in 1 to 2 weeks. Admission and Anticipated Discharge Date Admission Date: November 23, 2021 Subjective Feeling well today. Denies any chest pain. Had some nausea overnight which is resolved. Headache resolved. Feels like his thinking is back to normal. Telemetry reviewedoccasional PVCs. No complex arrhythmias. Review of Systems Review of Systems: All systems reviewed & are unremarkable except as noted in HPI & below Physical Exam Physical Exam: General: Comfortable HEENT: Sclerae anicteric, Mask in place Lungs: Clear to auscultation bilaterally, no crackles or wheezes Cardiac: Regular rate and rhythm, no murmurs. Vascular: Right radial artery access site with no ecchymosis, hematoma. Distal pulse and sensation intact. Abdomen: Soft, nontender Extremities: Well perfused, no peripheral edema Neuro: Nonfocal Psych: Alert orient x3, normal affect and mood Results & Data ([facility]) Vital Signs (Past 12 Hours) Vital Signs Temp Pulse Pulse Resp BP BP Pulse Ox 11/25/21 08:00 98.2 F 59 L 59 L 20 113/68 95 11/25/21 04:30 56 L 12 97 11/25/21 04:00 56 L 12 103/67 94 11/25/21 03:30 56 L 15 94 11/25/21 03:00 51 L 11 L 93 11/25/21 02:56 52 L 18 109/64 94 11/25/21 02:30 51 L 15 100/63 94 11/25/21 02:25 54 L 10 L 103/61 93 11/25/21 02:18 54 L 10 L 82/56 L 91 11/25/21 02:15 54 L 11 L 102/59 L 90 11/25/21 02:07 52 L 12 91/53 L 11/25/21 02:06 54 L 17 11/25/21 01:30 53 L 12 88/49 L 91 11/25/21 00:00 54 L 11/24/21 23:39 97.9 F 52 L 16 119/74 94 PG Care Time/CCT Total # of Minutes Spent Total Time Spent with Patient: Total time spent is greater than 50% in coordination of care (as documented) at patient's floor/unit and/or counseling patient: Coding Level of Care Code 17288 Subseq Hosp Care Lvl 3 Diagnoses Non-ST elevation (NSTEMI) myocardial infarction I21.4
--- NOTE | 2021-11-25 11:53 | Discharge Summary ---
Date of Service November 25, 2021 Admission HPI Per Admitting Provider 60 yo M with a PMHx HTN and BPH who presented to the ER after an episode of chest pain at rest at home. Pain resolved after receiving IV fluids and 4 baby aspirin by EMS. Admission troponin of 0.41; EKG without ST changes. Lab work otherwise benign. Chest x-ray noted cardiomegaly without acute cardiopulmonary abnormality. 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 Recommendation for nonemergent contrast-enhanced chest CT. Patient reports around 1 month of exertional dyspnea (while walking up a hill near his yazdanism) but has never had pain or dyspnea at rest in the past. His last stress test was in 2012 which did not show any abnormalities at that time. Principal Diagnosis NSTEMI S/P PCI Discharge Exam PHYSICAL EXAM General Appearance: WDWN in NAD who is A&O x 3 HEENT: Head is normocephalic/atraumatic;Hearing grossly intact; Mucous membranes moist Neck: Supple; Trachea midline; Neg JVD Heart: RRR with no M/G/R Lungs: CTA in all lung esposito bilaterally; Respirations unlabored; Neg accessory muscle use Abdomen: Soft, non-tender, non-distended; Positive BS x 4 quadrants Extremities: Neg cyanosis or edema Neurological: Speech clear; Gross motor/sensory function intact; Neg focal neurologic deficits Psychiatric: Appropriate mood/affect Skin: Normal Color; Warm/Dry Discharge Data Allergies Allergy/AdvReac Type Severity Reaction Status Date / Time No Known Allergies Allergy Verified 11/23/21 16:56 Consultations 11/23/21 17:15 ED Decision to Admit Stat 11/23/21 18:13 Consult Cardiology Routine 11/24/21 17:55 Consult Cardiac Rehabilitation Routine Procedures Performed Operation Date: 11/24/21 15:00 Actual Procedures p Cineradiography w/Routine Exam - Maximo Carlos MD s Cath, Coronaries ONLY (no LV) - Maximo Carlos MD s IVUS Coronary Single Vessel - Thaddeus Green MD p Drug Eluting Stent SGl Vessel - Thaddeus Green MD Ordered Studies Chest X-Ray 11/23/21 16:12 SINGLE VIEW CHEST CLINICAL HISTORY: Atypical chest pain FINDINGS: 2 AP, portable, upright chest radiographs are obtained. No prior studies are available for comparison at the time of dictation. The heart is mildly enlarged. The pulmonary vasculature is noncongested. There is fullness of the reece. There is mild bibasilar scarring/atelectasis. No airspace consolidation or large pleural effusion is identified. No pneumothorax is seen. The bony thorax is grossly intact. IMPRESSION: 1. Cardiomegaly with no acute cardiopulmonary abnormality. 2. Bilateral hilar fullness is nonspecific. This could represent enlarged pulmonary arteries or possibly hilar adenopathy. A nonemergent contrast-enhanced chest CT could be considered for further assessment. ACT 112: Negative or not required by law. Electronically signed by: Duong Simon M.D. 11/23/2021 4:[address] 11/24/21 17:[address] DOSE: 537.48 mGy.cm HISTORY: confusion following procedure TECHNIQUE: Multiaxial CT images of the head were performed without the use of intravenous contrast. Automated exposure control was utilized for this study. A dose lowering technique was utilized adhering to the principles of ALARA. Comparison: None. Findings: Trace fluid within the left sphenoid sinus. The mastoid air cells are clear. There is contrast within the brain from the recent cardiac catheterization. This results in suboptimal evaluation for intracranial hemorrhage. The calvarium and skull base are intact. The ventricles and sulci are within normal limits. There is no definite mass, hematoma, midline shift, or acute infarct. Impression: No acute intracranial abnormality. ACT 112: Negative or not required by law. Electronically signed by: Grover Lock M.D. 11/24/2021 5:27 PM Hospital Course (1) Non-ST elevation (NSTEMI) myocardial infarction: 60 yo M with a PMHx HTN and BPH admitted for NSTEMI. NSTEMI, HTN: - Presented with 2 hours of midsternal chest pain improved following baby asa x4. - Initial troponin 0.41 and with trending went to 17.31, 12.87, and 9.09 . EKG without notable ST or T wave changes. - Hypertensive 160s/90s in ER but much improved - Lipid panel unremarkable; A1c 5.5 - S/P cardiac catheterization and PCI on 11/24 - Echo - EF 35-40% with large LAD wall motion abnormality; mild concentric LVH. no apical thrombus - Heparin gtt utilized during admission - Continue ASA and Plavix for 1 yeaer; Continue Toprol XL 25 mg daily; Continue ACEI - Cardiology followed - plans to F/U in 1-[address] Hinton -- Suspect repeat echocardiogram in 3 months to assess systolic function (2) HTN (hypertension): - CONTROLLED - Treatment as above (3) Hilar enlargement: - CXR with bilateral hilar fullness that is nonspecific -- enlarged pulmonary arteries vs possibly hilar adenopathy - Consider nonemergent contrast-enhanced chest CT for further assessment Patient to discharge home with PCP/Cardiology F/U. Anticipate F/U echocardiogram x 3 months Total Time Total Time Spent Total Time Spent (In Minutes): Spent greater than 30 minutes preparing patient for discharge. This includes discussion with patient/family, assessment, intervention, medication reconciliation, and coordination of care. Discharge Plan Discharge Items Patient Disposition: Home - Self-Care Reason For Visit: NSTEMI Discharge Diagnosis: NSTEMI with Stent Placement Activity: Per Instructions section Non-emergency contact: Primary Care Provider and Photography Coordinator Call non-emergency contact if: you have any medication questions, your symptoms worsen and you have a fever Follow-up/Referrals: Jesus Coelho MD [Primary Care Provider] - Maximo Carlos MD [Physician] - (Follow-up in 1-2 weeks. Please call office if you have not heard from them) Diet: Heart Healthy Addtl Attending Provider Instructions: NSTEMI (Heart Attack) with Stent Placed: - You were admitted for what is called a non-ST elevation heart attack. This means that your heart muscle was being irritated due to blockages in the blood vessels but did not show any of those changes on your EKG. - However, your cardiac markers called troponin did bump up which tells us the heart muscle was irritated. - Thankfully you had a heart catheterization that stented the one blood vessel called the LAD which helps good blood flow to the heart muscle. - It will be important to modify any risk factors you can to promote good heart health. -- Maintain a good healthy diet. Maintain good exercise. Maintain good blood pressure and cholesterol levels. Maintain good blood sugars. Avoid smoking and avoid excessive alcohol intake. - Since you had a stent placed, you will be taking a baby aspirin (81 mg) and Plavix 75 mg daily for at least one year. Your heart doctor will continue to follow you. - You will want to continue your Ramipril which is good for blood pressure and the heart. - You were started on a medication called Metoprolol. This medication is a heart protective medication as well as a blood pressure medication. Confusion: - You had some confusion when coming out of your catheterization. This may likely be from the sedation medications. Thankfully your CAT scan of your head did not show any concerns. Today you do not have any neurological symptoms which is wonderful. If you would develop more chest pain. Would recommend getting this checked out immediately. It is unlikely but stents can re-block and cause issues. Will send a prescription for nitroglycerin if you have chest pain. Please see the attached information on how to use nitroglycern. ONLY IF YOU NEED IT. Again since you just had a cath, if you develop chest pain and need to take nitroglycerin please be evaluated. 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 * No lifting over 2 pounds (approximately a 1/2 gallon of milk) with the utilized arm for 24 hours. * No strenuous activity such as bowling or tennis for 3 days. * Keep the site of the procedure covered with a bandage for 24 hours. *You may shower the day after the procedure. Do not take a tub bath or submerge the puncture site in water for the next 3 days. *Do not operate any motorized equipment for 3 days. SPECIAL CARE INSTRUCTIONS: The site may be slightly bruised and sore following your procedure. Should any of the following occur, contact the Dr. who performed your procedure. 1. Redness/inflammation, swelling, chills, or fever, or colored drainage at procedure site within 3-7 days after your procedure. 2. Coldness, discoloration, ongoing numbness, severe pain, or swelling. Expect mild tingling of hand and tenderness at the puncture site for up to three days. If this persists beyond three days, or other symptoms develop, notify the Dr. who performed your procedure. BLEEDING: If the procedure site on your wrist begins to bleed, do not panic 1. Place 1 or 2 fingers firmly just slightly above the insertion site to stop the bleeding. You may be able to feel your pulse as you hold pressure. 2. Lift your finger after 5 minutes to see if the bleeding has stopped. 3. Once the bleeding has stopped, gently wipe the wrist area clean with a bandage. * If the bleeding from your wrist does not stop after 10 minutes, or if there is a large amount of bleeding or spurting, call 911 (do not drive yourself to the hospital). SKIN IRRITATION: * You may experience some redness and/or swelling in the area where radiation was administered. If any skin irritation occurs, please contact your family physician. FOLLOW UP VISIT: Keep any scheduled doctor appointments. Pending Studies at Discharge: No Stand-Alone Forms: My [facility], Smoking Cessation Medications and DC Order Prescriptions: New clopidogrel 75 mg Tablet 75 mg PO QAM 30 Days Qty: 30 RF: 0 atorvastatin 80 mg tablet 80 mg PO QAM 30 Days Qty: 30 RF: 0 aspirin 81 mg Tablet,Delayed Release (Dr/Ec) 81 mg PO QAM 30 Days Qty: 30 RF: 0 metoprolol succinate [Toprol XL] 25 mg tablet extended release 24 hr 25 mg PO DAILY 30 Days Qty: 30 RF: 0 nitroglycerin 0.4 mg tablet, sublingual 0.4 mg sublingual Q5M PRN (Reason: chest pain) Qty: 10 RF: 0 Continued tamsulosin [Flomax] 0.4 mg capsule 0.4 mg PO QPM RF: 0 ramipril 5 mg capsule 5 mg PO QAM RF: 0 Discharge Orders: Discharge Order (Routine); Ordered 11/25/21 Ordered By: Nadeen Du/Other Patient Handouts: Clopidogrel Oral Tablet 75 mg, Atorvastatin Oral Tablet 40 mg, Fast-Acting Nitroglycerin, Coronary Stents, Cardiac Rehab Exercise Program, Coronary Angioplasty Stenting Dc, Heart Attack Dc, TIA Dc, Cardiac Rehab Getting Started Admission Data Admit Date/Time: 11/23/21 18:13 Attending Provider: Kevin Devi Admit Provider: Helen Mendoza Primary Care Provider: Jesus Coelho Other Providers: Ellis Mayfield ; Tyler Payton. Other Interventions: Discharge Summary Assessment (RN) Last Done: 11/25/21 12:22 Supervising Physician Co-Signing Physician Notes Attending note: patient seen and examined with Nadeen Galeana PA-C. I agree with her discharge summary. I personally reviewed the labs and imaging findings. patient doing well, no chest pain or pressure after stents placed in LAD yesterday also, no neurological deficits, he is speaking clearly and does not have confusi on he says he has had similar issues with anesthesia before, he refuses MRI brain as CT head was normal discussed with cardiology, he can be discharged from their perspective - NSTEMI: [facility] with lesions in LAD, drug eluting stents placed, will be on DAPT with aspirin and Plavix, statin therapy, metoprolol and lisinopril - Episode of confusion, word finding: happened after cath, had prolonged sedat ion due to length of procedure, CT head normal, symptoms resolved quickly so stroke alert not called, no need for MRI brain Coding Level of Care Code D/C DAY MANAGEMENT >30 MINS Diagnoses Non-ST elevation (NSTEMI) myocardial infarction I21.4 HTN (hypertension) I10 Hilar enlargement R91.8
--- NOTE | 2021-11-25 13:49 | Electrocardiogram Report ---
Test Reason : Blood Pressure : / mmHG Vent. Rate : 056 BPM Atrial Rate : 056 BPM P-R Int : 200 ms QRS Dur : 096 ms QT Int : 462 ms P-R-T Axes : 010 010 128 degrees QTc Int : 445 ms Sinus bradycardia T wave abnormality, consider anterolateral ischemia Inferior ST abnormality Abnormal ECG When compared with ECG of 25-NOV-2020 02:21, No significant change was found Confirmed by Ravi Madsen ([id number]) on 11/25/2021 1:49:01 PM Referred By: REFERRED SELF Confirmed By:Ravi Madsen
== END 2021-11-25 13:15 | disposition home or self-care (01) | DRG 247 ==
LOC: ED 16:07 → SUATTDRO 18:13 → EDINP 18:13 → 1E 11-24 12:59
PROC: CLB.CCO (2021-11-24 15:00)